=== PATIENT | female | born 1990 | race African-American/Black ===

== ENCOUNTER 2016-08-14 08:28 | Emergency (ER) | payer OTHER ==
[2016-08-14 08:38] VITALS: BP 107/56
[2016-08-14] MEDS ORDERED: FLUT9.9S NS (09:00)
[2016-08-14] MEDS ORDERED: NAPR250T2 PO (09:00)
[2016-08-14] MEDS ORDERED: LORA10TA68 PO (09:00)
[2016-08-14 09:18] LABS: NEG OBC UR NEG; POS OBC UR POS
--- NOTE | 2016-08-14 09:36 | ED.ADGEN ---
Past Medical History Past Medical History: No Pertinent History Past Surgical History: Other Additional Past Surgical Histo: right lower leg Alcohol Use: None Drug Use: Marijuana Adult General Chief Complaint Chief Complaint: FLU SYMPTOM HPI HPI Patient is a 25 year old woman, with no significant past no history, who presents to the emergency department with a complaint of nasal congestion, pressure in the sinuses, cough is nonproductive, and generalized malaise for the past several days. She denies any headache, any nausea or vomiting, any weakness emesis or tingling, any chest pain or shortness of breath. Patient states that she presents the ED if she's been sent home from work, she works at a [employer], and is in contact with food and customers, and needs clearance to return to work. She states that she did feel very hot last night, but has no objective fevers, no chills, did not receive flu vaccination. Denies any recent travel or surgery, history of DVT or PE, any swelling extremities or other concerning symptoms or exposures. Patient has been using NyQuil, Tylenol, without relief. Last dose of Tylenol was last night. Review of Systems Review of Systems Constitutional: Denies fever or chills. [] Eyes: Denies change in visual acuity. [] HENT: Nasal congestion, that is current, associated with pressure in the sinuses , sore throat that resolved several days ago. [] Respiratory: Nonproductive cough, no shortness of breath. Cardiovascular: Denies chest pain or edema. [] GI: Denies abdominal pain, nausea, vomiting, bloody stools or diarrhea. [] : Denies dysuria. [] Musculoskeletal: Denies back pain or joint pain. [] Integument: Denies rash. [] Neurologic: Denies headache, focal weakness or sensory changes. [] Endocrine: Denies polyuria or polydipsia. [] Lymphatic: Denies swollen glands. [] Psychiatric: Denies depression or anxiety. [] Allergies Allergies Allergies Coded Allergies Type Severity Reaction Last Updated Verified No Known Drug Allergies 03/16/14 No Physical Exam Physical Exam Constitutional: Well developed, well nourished, no acute distress, non-toxic appearance. [] HENT: Normocephalic, atraumatic, bilateral external ears normal, oropharynx moist, no oral exudates, is mildly injected, external nose is normal, patient with bilateral significant swelling of the turbinates, are engorged, no active bleeding, clear rhinorrhea noted, no purulent discharge. [] Eyes: PERRLA, EOMI, conjunctiva normal, no discharge. [] Neck: Normal range of motion, no tenderness, supple, no stridor. [] Cardiovascular:Heart rate regular rhythm, no murmur , S1, S2, rubs or gallops. [ ] Lungs & Thorax: Bilateral breath sounds clear to auscultation, no wheezing, rhonchi, rales. No chest tenderness or crepitus. [] Abdomen: Bowel sounds normal, soft, no tenderness, no rebound, rigidity, no guarding, no masses, no pulsatile masses. [] Skin: Warm, dry, no erythema, no rash. [] Back: No tenderness, no CVA tenderness. [] Extremities: No tenderness, no cyanosis, no clubbing, ROM intact, no edema. Negative Homans sign. [] Neurologic: Alert and oriented X 3, normal motor function, normal sensory function, no focal deficits noted. [] Psychologic: Affect normal, judgement normal, mood normal. [] Current Patient Data Vital Signs Vital Signs Date Time Temp Pulse Resp B/P Pulse Ox O2 Delivery O2 Flow Rate FiO2 08/14/16 08:38 98.4 70 12 107/56 99 Room Air 98.4 Lab Values Laboratory Tests Test 08/14/16 09:00 Urine Test Negative (NEG) EKG EKG ECG: Rhythm strip: Heart rate 76 beats minute, sinus rhythm, no ectopy. As interpreted by me. [] Radiology/Procedures Radiology/Procedures Not indicated. [] Course & Med Decision Making Course & Med Decision Making Pertinent Labs and Imaging studies reviewed. (See chart for details) Patient's examination and symptoms are consistent with a viral upper upper respiratory infection. No evidence of lower airspace disease, no other concerning findings identified and examination, vital signs are within normal limits. Patient appears well-hydrated, pretty test is negative in the emergency department. Advised patient to use Flonase nasal spray to assist with swelling of the turbinates, which is the cause for the patient's nasal congestion, she has no evidence of sinusitis, with no tenderness on facial palpation. 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 Patient was given a work note for the next 2-3 days, given clear and equal return instructions with which she voiced understanding and agreement, given prescriptions for Flonase, Claritin, and naproxen, to return if needed, and to continue symptomatically management. Discharged home in stable condition with plan as above. Dragon Disclaimer Dragon Disclaimer This electronic medical record was generated, in whole or in part, using a voice recognition dictation system. Departure Impression: Primary Impression: Upper respiratory infection Disposition: HOME, SELF-CARE Condition: IMPROVED Scripts Loratadine (Claritin)10 Mg Tablet1 Tab PO DAILY PRN CONGESTION #15 TAB Ref 5 Prov:DOMITILA GARRIDO DO 08/14/16 Fluticasone Propionate (Flonase Allergy Relief)9.9 Ml [place].susp2 Sprays NS DAILY #1 BOTTLE Prov:DOMITILA GARRIDO DO 08/14/16 Naproxen 250 Mg [id number] Mg PO BID PRN PAIN #10 Prov:DOMITILA GARRIDO DO 08/14/16 Problem Qualifiers Primary Impression: Upper respiratory infection URI type: unspecified viral URI Qualified Code: J06.9 - Acute upper respiratory infection, unspecified DOMITILA GARRIDO DO Aug 14, 2016 09:36
== END 2016-08-14 09:21 | disposition home or self-care (01) ==
LOC: ER 08:28
DX: J06.9 Acute upper respiratory infection, unspecified (principal); F12.10 Cannabis abuse, uncomplicated
CPT/HCPCS: 81025; 99283

== ENCOUNTER 2017-01-17 10:29 | Emergency (ER) | payer OTHER ==
[~2017-01-17] VITALS: Ht 162.6 cm; Wt 52.2 kg
[~2017-01-17 10:29] MED LIST: FLUT9.9S NS; LORA10TA68 PO; NAPR250T2 PO
[2017-01-17 10:36] VITALS: BP 102/68
[2017-01-17] MEDS ORDERED: PSEUDOEPHEDRINE 30 MG TABLET. PO ONE (11:15)
[2017-01-17] MEDS ORDERED: AMOX1TAB61 PO (11:19)
--- NOTE | 2017-01-17 11:19 | PHYS DOC ---
Past Medical History Past Medical History: No Pertinent History Past Surgical History: Other Additional Past Surgical Histo: right lower leg Alcohol Use: None Drug Use: Marijuana Adult General Chief Complaint Chief Complaint: DENTAL PROBLEM HPI HPI Patient is a 26 year old one dose with no relief she's taken ibuprofen Tylenol Excedrin and oxycodone in which has had no relief. Patient denies any fever, chills or any nausea or vomiting. She does state that she has right frontal sinus tenderness and discomfort in the right maxillary area as well. Patient denies and she states she is on her menstrual cycle at the current time. Review of Systems Review of Systems Constitutional: Denies fever or chills [] Eyes: Denies change in visual acuity, redness, or eye pain [] HENT: Denies nasal congestion or sore throat. Complaint of right ear pain and dental pain on the right lower. Respiratory: Denies cough or shortness of breath [] Cardiovascular: No additional information not addressed in HPI [] GI: Denies abdominal pain, nausea, vomiting, bloody stools or diarrhea [] : Denies dysuria or hematuria [] Musculoskeletal: Denies back pain or joint pain [] Integument: Denies rash or skin lesions [] Neurologic: Denies headache, focal weakness or sensory changes [] Endocrine: Denies polyuria or polydipsia [] Current Medications Current Medications Current Medications Medications (Trade) Dose Ordered Sig/[place] Start Time Stop Time Status Last Admin Dose Admin Pseudoephedrine HCl (Sudafed) 30 mg 1X ONCE 01/17/17 11:15 01/17/17 11:17 DC Allergies Allergies Allergies Coded Allergies Type Severity Reaction Last Updated Verified No Known Drug Allergies 03/16/14 No Physical Exam Physical Exam Constitutional: Well developed, well nourished, no acute distress, non-toxic appearance. [] HENT: Normocephalic, atraumatic, bilateral external ears normal, oropharynx moist, no oral exudates, nose normal. Patient with left tympanic membrane being normal. Right tympanic membrane appears to be slightly bulging and slightly dark. Patient with tenderness noted over the right frontal and right maxillary sinus area. Throat with no erythematous no drainage, no exudate Eyes: PERRLA, EOMI, conjunctiva normal, no discharge. [] Neck: Normal range of motion, no tenderness, supple, no stridor. [] Cardiovascular:Heart rate regular rhythm, no murmur [] Lungs & Thorax: Bilateral breath sounds clear to auscultation [] Skin: Warm, dry, no erythema, no rash. [] Back: No tenderness Extremities: No tenderness, no cyanosis, no clubbing, ROM intact, no edema. [] Neurologic: Alert and oriented X 3, normal motor function, normal sensory function, no focal deficits noted. [] Psychologic: Affect normal, judgement normal, mood normal. [] Current Patient Data Vital Signs Vital Signs Date Time Temp Pulse Resp B/P (MAP) Pulse Ox O2 Delivery O2 Flow Rate FiO2 01/17/17 10:36 98.0 65 16 98 Room Air 98.0 EKG EKG [] Radiology/Procedures Radiology/Procedures [] Course & Med Decision Making Course & Med Decision Making Pertinent Labs and Imaging studies reviewed. (See chart for details) Recommended Sudafed instructed by cnc technician [id number]. Mucinex DM to help relieve some of the pressure and congestion. Recommended Tylenol and ibuprofen for pain and discomfort. Encourage plenty of fluids. Patient will be provided with Augmentin for sinus infection. Signs and symptoms to return back to emergency department as been provided. Patient agrees with discharge instructions treatment regimens and follow-up recommendations. [] Dragon Disclaimer Dragon Disclaimer This electronic medical record was generated, in whole or in part, using a voice recognition dictation system. Departure Departure Impression: Primary Impression: Sinusitis Disposition: HOME, SELF-CARE Condition: STABLE Referrals: NO PCP (PCP) Patient Instructions: Sinusitis, [id number] Additional Instructions: Activity as tolerated. Sudafed instructed by cnc technician [id number]. Mucinex DM instructed by cnc technician [id number]. This will also help relieve the pressure in the frontal sinuses and maxillary sinuses as well as in the right ear. Antibiotics as prescribed. Tylenol or ibuprofen for pain and discomfort may also help. Drink plenty of fluids. Follow-up through primary care physician in the next 5-7 days. Return to the emergency department for signs and symptoms of become worse. Scripts Amoxicillin/Potassium Clav (AUGMENTIN 875-125 TABLET) 1 Each Tablet 1 TAB PO BID, #20 TAB Prov: RAMANA LEONE APRN 01/17/17 RAMANA LEONE APRN Jan 17, 2017 11:19
== END 2017-01-17 11:26 | disposition home or self-care (01) ==
LOC: ER 10:29
DX: J32.1 Chronic frontal sinusitis (principal); J32.0 Chronic maxillary sinusitis; F12.10 Cannabis abuse, uncomplicated
CPT/HCPCS: 99283

== ENCOUNTER 2017-09-07 14:29 | Emergency (ER) | payer OTHER | END 2017-09-07 15:35 | disposition home or self-care (01) | LOC: ER 14:29 | DX: N64.4 Mastodynia (principal); F12.10 Cannabis abuse, uncomplicated; F17.210 Nicotine dependence, cigarettes, uncomplicated | CPT/HCPCS: 93005; 99283-25 ==

== ENCOUNTER 2017-11-26 10:30 | Emergency (ER) | payer OTHER ==
[2017-11-26 10:55] LABS: URINE HCG POC HCG POSITIVE (Negative)
[2017-11-26] MEDS: IV NORMAL SALINE 1000ML BAG 1,000 ML IV (11:24)
[2017-11-26 11:25] LABS: ADD MAN DIFF? NO
[2017-11-26] MEDS: ONDANSETRON PF 4 MG/2 ML VIAL. IV (11:25)
[2017-11-26 11:36] LABS: BILIRUBIN,URINE NEGATIVE (NEG); CLARITY,URINE CLOUDY; COLOR,URINE YELLOW; GLUCOSE,URINE NEGATIVE (NEG); NITRITE,URINE NEGATIVE (NEG); PH,URINE 7.5; PROTEIN,URINE 30 mg/dL (NEG-TRACE)
[2017-11-26 11:39] LABS: ANION GAP 11 (6-14); BLOOD UREA NITROGEN 7 mg/dL (7-20); BUN/CREATININE RATIO 10 (6-20); CALCIUM 9.4 mg/dL (8.5-10.1); CARBON DIOXIDE 26 mmol/L (21-32); CHLORIDE 104 mmol/L (98-107); CREATININE 0.7 mg/dL (0.6-1.0); GFR 120.6; GLUCOSE 96 mg/dL (70-99); POTASSIUM 3.5 mmol/L (3.5-5.1); SODIUM 141 mmol/L (136-145)
[2017-11-26 11:42] LABS: ETHANOL < 10 mg/dL (0-10)
[2017-11-26 11:44] LABS: AMPHETAMINE/METHAMPHETAMINE NEG (NEG); BARBITURATES NEG (NEG); BENZODIAZEPINES NEG (NEG); CANNABINOIDS POS (NEG); COCAINE NEG (NEG); ETHANOL, URINE NEG (NEG); METHADONE NEG (NEG); OPIATES NEG (NEG); PHENCYCLIDINE NEG (NEG)
[2017-11-26 11:45] LABS: ALBUMIN 4.2 g/dL (3.4-5.0); ALK PHOS 60 U/L (46-116); ALT (SGPT) 37 U/L (14-59); AST (SGOT) 25 U/L (15-37); LIPASE 75 U/L (73-393); TOTAL BILIRUBIN 0.9 mg/dL (0.2-1.0); TOTAL PROTEIN 8.6 g/dL (6.4-8.2)
[2017-11-26 11:47] LABS: BASO # 0.1 x10^3/uL (0.0-0.2); BASO % 1 % (0-3); EOS # 0.1 x10^3/uL (0.0-0.7); EOS % 1 % (0-3); HEMATOCRIT 40.9 % (36.0-47.0); HEMOGLOBIN 14.3 g/dL (12.0-15.5); LYMPH # 3.1 x10^3/uL (1.0-4.8); LYMPH % 38 % (24-48); MEAN CORPUSCULAR HEMOGLOBIN 33 pg (25-35); MEAN CORPUSCULAR HGB CONC 35 g/dL (31-37); MEAN CORPUSCULAR VOLUME 95 fL (79-100); MONO # 0.5 x10^3/uL (0.0-1.1); MONO % 6 % (0-9); NEUT # 4.3 x10^3uL (1.8-7.7); NEUT % 54 % (31-73); PLATELET COUNT 303 x10^3/uL (140-400); RED BLOOD COUNT 4.31 x10^6/uL (3.50-5.40); RED CELL DISTRIBUTION WIDTH 13.1 % (11.5-14.5); WHITE BLOOD COUNT 8.1 x10^3/uL (4.0-11.0)
[2017-11-26 11:51] LABS: AMORPHOUS SEDIMENT,UR PRESENT /HPF; BACTERIA,URINE FEW /HPF (0-FEW); RBC,URINE 0 /HPF (0-2); SQUAMOUS EPITHELIAL CELL,UR MOD /LPF
== END 2017-11-26 14:05 | disposition home or self-care (01) ==
LOC: ER 10:30
DX: Z33.1 Pregnant state, incidental (principal); R11.2 Nausea with vomiting, unspecified; F12.10 Cannabis abuse, uncomplicated; Z3A.01 Less than 8 weeks gestation of pregnancy
CPT/HCPCS: 36415; 76801; 76817; 80053; 80307; 81001; 81025; 83690; 84702; 85025; 87086; 96361; 96374; 99285-25; G0480; J2405; J7030

== ENCOUNTER 2017-11-27 19:57 | Emergency (ER) | payer OTHER ==
[2017-11-27] MEDS: IV NORMAL SALINE 1000ML BAG 1,000 ML IV (20:17)
[2017-11-27] MEDS: ONDANSETRON PF 4 MG/2 ML VIAL. IV (20:17)
[2017-11-27] MEDS: diphenhydrAMINE 50 MG/ML VIAL IVP (20:23)
== END 2017-11-27 22:33 | disposition home or self-care (01) ==
LOC: ER 19:57
DX: O21.0 Mild hyperemesis gravidarum (principal); O99.321 Drug use complicating pregnancy, first trimester; F12.10 Cannabis abuse, uncomplicated; Z3A.01 Less than 8 weeks gestation of pregnancy
CPT/HCPCS: 96361; 96374; 96375; 99284-25; 99285-25; J1200; J2405; J7030

== ENCOUNTER 2021-04-16 20:06 | Emergency (ER) | payer OTHER ==
[2017-11-27 22:09] VITALS: BP 111/54
[~2021-04-16 20:06] MED LIST changes: +AMOX1TAB61 PO; +METO10TA81 PO; +NAPR-699 PO; -NAPR250T2 PO; +ONDA4TAB10 SL
== END 2021-04-17 01:00 | disposition left against medical advice (07) ==
LOC: ER 20:06
DX: M54.9 Dorsalgia, unspecified (principal); M25.519 Pain in unspecified shoulder; Z53.21 Procedure and treatment not carried out due to patient leaving prior to being seen by health care provider